=== PATIENT | female | born 1990 | race Caucasian/White ===

== ENCOUNTER 2016-12-28 19:13 | Emergency (ER) | payer MEDICARE ==
[~2016-12-28] VITALS: Ht 157.5 cm; Wt 81.6 kg
[~2016-12-28 19:13] MED LIST: /ADVA50050 IN; /ESCI10TA OR; ADVAIR INH; ALBU0.63 INH; ALBU17IN2 IN; CELEXA PO; DEPA500T OR; DEPAKOTE PO; GABAPOW41 PO; KLON0.5T PO; KLON1TAB PO; LAMO100T PO; LAMO10TA PO; LOTRISONE TOP; MOBIC PO; PAXI10TA2 PO; PROVENTIL; SEROQUEL PO; TRAZ50TA4 PO; ZOLO100T OR
[2016-12-28] MEDS ORDERED: VALT500T PO (19:30)
[2016-12-28] MEDS ORDERED: FOLI800C PO (19:30)
[2016-12-28] MEDS ORDERED: PRENTAB40 PO (19:30)
[2016-12-28 20:31] LABS: CONTROL LINE UCG INT CTR LINE PRESENT
[2016-12-28 20:36] LABS: CALCIUM OXALATE CRYSTALS SMALL
[2016-12-28] MEDS ORDERED: IBUPROFEN 600 MG TAB PO ONE (21:45)
[2016-12-28] MEDS ORDERED: NS 1,000 ML IV ONE (21:45)
[2016-12-28 21:57] LABS: BASO % 0.3 % (0.0-1.0); EOS # 0.3 K/mm3 (0.0-0.50); EOS % 2.7 % (0.0-3.0); LARGE UNSTAINED CELL # 0.1 K/mm3 (0.0-0.4); LARGE UNSTAINED CELL % 0.5 % (0.0-4.0); LYMPH # 0.6 K/mm3 (1.5-6.5); LYMPH % 4.7 % (24.0-44.0); MEAN CORPUSCULAR HEMOGLOBIN 27.9 pg (27.0-33.0); MEAN CORPUSCULAR HGB CONC 33.1 g/dl (32.0-36.5); MEAN CORPUSCULAR VOLUME 84.5 fl (80.0-96.0); MONO # 0.3 K/mm3 (0.0-0.8); MONO % 2.8 % (0.0-5.0); NEUTROPHILS # 9.4 K/mm3 (1.8-7.7); PLATELET COUNT, AUTOMATED 276 k/mm3 (150-450); RED CELL DISTRIBUTION WIDTH 14.8 % (11.5-14.5); WHITE BLOOD COUNT 10.6 K/mm3 (4.0-10.0)
[2016-12-28 22:28] LABS: ANION GAP 7 MEQ/L (8-16); BLOOD UREA NITROGEN 18 MG/DL (7-18); CALCIUM LEVEL 8.6 MG/DL (8.5-10.1); CARBON DIOXIDE LEVEL 22 MEQ/L (21-32); CHLORIDE LEVEL 111 MEQ/L (98-107); CREATININE FOR GFR 0.88 MG/DL (0.55-1.02); GLOMERULAR FILTRATION RATE > 60.0 (>60); GLUCOSE, FASTING 101 MG/DL (70-105); HCG, SERUM QUANTITATIVE 45 MIU/ML; POTASSIUM SERUM 4.1 MEQ/L (3.5-5.1); SODIUM LEVEL 140 MEQ/L (136-145)
--- NOTE | 2016-12-28 22:30 | REPUSA ---
Clinical history: Pain. Findings: Real-time transabdominal and transvaginal ultrasound images of the pelvis were obtained. An anteverted uterus is noted, measuring 13.2 x 7.6 x 10.1 cm. The uterus demonstrates normal echotextu re and echogenicity. The endometrial stripe measures 20 mm in thickness. No evidence of hyper vascula rity is seen in this region. Endometrial fluid is noted. The right ovary measures 4.1 x 2.5 x 2.3 cm. The left ovary measures 4.8 x 3.8 x 2.3 cm. No adnexal masses are seen. Color Doppler flow is seen w ithin both ovaries. There is no evidence of free fluid. Impression: 1. Thickened endometrial stripe with moderate amount of individual fluid. No hypervascularity is appr eciated. The findings likely represent blood products, and there is no discrete evidence of hurricane products of conception. Follow-up is recommended as clinically indicated.
[2016-12-28] MEDS ORDERED: MACR100C3 PO (22:45)
[2016-12-28] MEDS ORDERED: NITROFURANTOIN (MACROBID) 100 MG CAP PO ONE (22:45)
[2016-12-28 22:52] VITALS: BP 120/77
== END 2016-12-28 23:44 | disposition home or self-care (01) ==
LOC: M ED 21:57
DX: N39.0 Urinary tract infection, site not specified (principal); E86.0 Dehydration; N85.00 Endometrial hyperplasia, unspecified; R11.2 Nausea with vomiting, unspecified; R10.30 Lower abdominal pain, unspecified; R10.2 Pelvic and perineal pain; R51 Headache; J45.909 Unspecified asthma, uncomplicated; F31.9 Bipolar disorder, unspecified; F41.9 Anxiety disorder, unspecified; Z79.899 Other long term (current) drug therapy; Z88.2 Allergy status to sulfonamides; Z88.1 Allergy status to other antibiotic agents; Z91.010 Allergy to peanuts

== ENCOUNTER → 2017-05-03 | Outpatient (CLI) | payer MEDICARE ==
[~2017-05-03] MED LIST changes: +FOLI800C PO; +MACR100C43 PO; +PAXI10TA12 PO; -PAXI10TA2 PO; +PRENTAB40 PO; +TRAZ50TA11 PO; -TRAZ50TA4 PO; +VALT500T PO
[2017-05-03 09:41] LABS: BASO % 0.6 % (0.0-1.0); EOS # 0.6 K/mm3 (0.0-0.50); EOS % 7.4 % (0.0-3.0); LYMPH # 1.5 K/mm3 (1.5-6.5); LYMPH % 19.1 % (24.0-44.0); MEAN CORPUSCULAR HEMOGLOBIN 29.5 pg (27.0-33.0); MEAN CORPUSCULAR HGB CONC 34.2 g/dl (32.0-36.5); MEAN CORPUSCULAR VOLUME 86.2 fl (80.0-96.0); MONO # 0.4 K/mm3 (0.0-0.8); MONO % 4.7 % (0.0-5.0); NEUTROPHILS # 5.2 K/mm3 (1.8-7.7); NEUTROPHILS % 66.5 % (36.0-66.0); RED CELL DISTRIBUTION WIDTH 12.6 % (11.5-14.5); WHITE BLOOD COUNT 7.8 K/mm3 (4.0-10.0)
[2017-05-03 10:10] LABS: ALBUMIN 3.9 GM/DL (3.2-5.2); ALBUMIN/GLOBULIN RATIO 1.08 (1.00-1.93); ALKALINE PHOSPHATASE 88 U/L (45-117); ALT/SGPT 32 U/L (12-78); ANION GAP 8 MEQ/L (8-16); AST/SGOT 22 U/L (15-37); BILIRUBIN,TOTAL 0.5 MG/DL (0.2-1.0); BLOOD UREA NITROGEN 8 MG/DL (7-18); CALCIUM LEVEL 8.8 MG/DL (8.5-10.1); CARBON DIOXIDE LEVEL 28 MEQ/L (21-32); CHLORIDE LEVEL 106 MEQ/L (98-107); CHOLESTEROL LEVEL 149 MG/DL (<200); CREATININE FOR GFR 0.74 MG/DL (0.55-1.02); FREE T4 0.92 NG/DL (0.76-1.46); GLOMERULAR FILTRATION RATE > 60.0 (>60); GLUCOSE, FASTING 76 MG/DL (70-105); SODIUM LEVEL 142 MEQ/L (136-145); TOTAL PROTEIN 7.5 GM/DL (6.4-8.2); TRIGLYCERIDES LEVEL 38 MG/DL (<150)
== END ==
LOC: M LAB 09:05
PROVIDERS: ATTEND Nurse Practitioner Adult Health
DX: E78.1 Pure hyperglyceridemia (principal); E78.00 Pure hypercholesterolemia, unspecified; Z79.899 Other long term (current) drug therapy; E55.9 Vitamin D deficiency, unspecified; E04.9 Nontoxic goiter, unspecified; F31.9 Bipolar disorder, unspecified

== ENCOUNTER 2018-09-08 11:31 | Emergency (ER) | payer MEDICARE, OTHER ==
[~2018-09-08] VITALS: Ht 157.5 cm; Wt 86.4 kg
[~2018-09-08 11:31] MED LIST changes: +TRAZ-160 PO; -TRAZ50TA11 PO
[2018-09-08] MEDS ORDERED: ADACEL/BOOSTRIX VACCINE (DIPHTH/PERTUSS/ACELL/TETANUS)0.5ML SYR (90715) IM ONE (11:45)
[2018-09-08] MEDS ORDERED: BACITRACIN OINT 30GM TOP ONE (12:00)
[2018-09-08] MEDS ORDERED: PERCOCET 5MG/325MG TAB PO ONE (12:00)
[2018-09-08] MEDS ORDERED: PERC5TAB12 PO (12:42)
[2018-09-08] MEDS ORDERED: KETOROLAC TROMETHAMINE 10 MG TAB PO ONE (12:45)
[2018-09-08] MEDS ORDERED: KETO10TAB PO (12:45)
[2018-09-08] MEDS ORDERED: MORPHINE 4 MG/ML 1ML VIAL/SYRINGE (J2270) IM ONE (12:45)
[2018-09-08 13:15] VITALS: BP 134/89
== END 2018-09-08 13:26 | disposition home or self-care (01) ==
LOC: M ED 11:31
DX: T25.122A Burn of first degree of left foot, initial encounter (principal); T25.121A Burn of first degree of right foot, initial encounter; T25.222A Burn of second degree of left foot, initial encounter; T31.0 Burns involving less than 10% of body surface; X10.0XXA Contact with hot drinks, initial encounter; Y92.89 Other specified places as the place of occurrence of the external cause; Y99.0 Civilian activity done for income or pay; F33.9 Major depressive disorder, recurrent, unspecified; F41.9 Anxiety disorder, unspecified; B00.9 Herpesviral infection, unspecified; Z88.2 Allergy status to sulfonamides; Z88.8 Allergy status to other drugs, medicaments and biological substances; Z91.018 Allergy to other foods
CPT/HCPCS: 90471; 90715; 96372; 99283; J2270

== ENCOUNTER 2018-09-10 08:48 | Emergency (ER) | payer OTHER ==
[~2018-09-10] VITALS: Ht 157.5 cm; Wt 86.4 kg
[2018-09-10 08:48] VITALS: BP 130/78
[~2018-09-10 08:48] MED LIST changes: +KETO10TAB PO; +PERC5TAB12 PO
== END 2018-09-10 10:13 | disposition home or self-care (01) ==
LOC: M ED 08:48
DX: T25.022D Burn of unspecified degree of left foot, subsequent encounter (principal); X58.XXXD Exposure to other specified factors, subsequent encounter; Y92.89 Other specified places as the place of occurrence of the external cause; J45.909 Unspecified asthma, uncomplicated; F31.9 Bipolar disorder, unspecified; B00.9 Herpesviral infection, unspecified; Z91.018 Allergy to other foods; Z88.2 Allergy status to sulfonamides; Z88.8 Allergy status to other drugs, medicaments and biological substances

== ENCOUNTER → 2019-03-21 | Outpatient (CLI) | payer BC, MEDICARE ==
[~2019-03-21] MED LIST changes: -/ADVA50050 IN; -/ESCI10TA OR; +ADVA1AER2 IN; +LAMO100T80 PO; -LAMO10TA PO; +LEXA1TAB OR; -TRAZ-160 PO; +TRAZ-252 PO
--- NOTE | 2019-03-21 11:19 | REP ---
Clinical: Nontoxic goiter. Technique: Real time mccoy scale and color evaluation using linear high frequency transducer. Comparison: 07/29/2015. Findings: Thyroid gland is essentially normal in size, contour, parenchymal echotexture and vascularity. Right lobe measures 4.8 x 1.3 x 1.6 cm. Isthmus measures 3.2 mm in width. Left lobe measures 4.7 x 1.3 x 1.4 cm. Two adjacent normal appearing lymph nodes with central fatty vascular jen are identified and measures 3.6 x 4.7 x 2.2 mm and 4.6 x 5.6 x 2.2 mm. Impression: Essentially normal thyroid ultrasound. Electronically Signed by Duc Gurrola MD 03/21/2019 11:11 A
== END ==
LOC: M RAD 10:05
PROVIDERS: ATTEND Nurse Practitioner Adult Health
DX: E04.9 Nontoxic goiter, unspecified (principal)

== ENCOUNTER → 2019-04-04 | Outpatient (REF) | payer OTHER, BC ==
[~2019-04-04] MED LIST changes: +ALBU83IN NEB; +CETI10CH PO; +DEPA250T32 PO; -LAMO100T PO; +LAMO100T3 PO
== END ==
LOC: M LAB LCGH 11:47
PROVIDERS: ATTEND Obstetrics & Gynecology
DX: Z12.4 Encounter for screening for malignant neoplasm of cervix (principal)

== ENCOUNTER 2019-08-25 07:03 | Emergency (ER) | payer BC, OTHER ==
[~2019-08-25] VITALS: Ht 157.5 cm; Wt 93.2 kg
[~2019-08-25 07:03] MED LIST changes: -ALBU83IN NEB; -CETI10CH PO; -DEPA250T32 PO
[2019-08-25] MEDS ORDERED: CETI10CH PO (07:18)
[2019-08-25] MEDS ORDERED: DEPA250T32 PO (07:18)
[2019-08-25] MEDS ORDERED: IBUPROFEN 800 MG TAB PO ONE (07:30)
[2019-08-25] MEDS ORDERED: NS 500 ML IV ONE (07:30)
[2019-08-25] MEDS ORDERED: ALBUTEROL SULFATE 2.5 MG/0.5 ML INH NEB SOLN NEB ONE (07:45)
[2019-08-25 07:56] LABS: INFLUENZA A AMPLIFICATION POSITIVE (NEGATIVE); INFLUENZA B AMPLIFICATION NEGATIVE (NEGATIVE)
[2019-08-25 08:14] LABS: BASO % 0.4 % (0.0-1.0); EOS # 0.2 10^3/uL (0.0-0.5); EOS % 3.8 % (0.0-3.0); HEMOGLOBIN 14.8 g/dl (12.0-15.5); LYMPH # 0.6 10^3/uL (1.5-5.0); LYMPH % 12.8 % (24.0-44.0); MEAN CORPUSCULAR HEMOGLOBIN 28.1 pg (27.0-33.0); MEAN CORPUSCULAR HGB CONC 32.9 g/dl (32.0-36.5); MEAN CORPUSCULAR VOLUME 85.6 fl (80.0-96.0); MONO # 0.6 10^3/uL (0.0-0.8); MONO % 11.2 % (0.0-5.0); NEUTROPHILS # 3.6 10^3/uL (1.5-8.5); NEUTROPHILS % 71.4 % (36.0-66.0); PLATELET COUNT, AUTOMATED 144 10^3/uL (150-450); RED BLOOD COUNT 5.26 10^6/uL (4.00-5.40)
[2019-08-25] MEDS ORDERED: ALBU83IN NEB (08:28)
[2019-08-25] MEDS ORDERED: ACETAMINOPHEN 500 MG TAB PO ONE (08:45)
[2019-08-25 09:31] VITALS: BP 118/68
== END 2019-08-25 09:38 | disposition home or self-care (01) ==
LOC: M ED 07:03
DX: J09.X2 Influenza due to identified novel influenza A virus with other respiratory manifestations (principal); J45.909 Unspecified asthma, uncomplicated; F31.9 Bipolar disorder, unspecified; Z88.2 Allergy status to sulfonamides; Z91.018 Allergy to other foods; Z79.899 Other long term (current) drug therapy

== ENCOUNTER → 2019-10-14 | Outpatient (REF) | payer OTHER ==
[~2019-10-14] MED LIST changes: +ALBU83IN NEB; +CETI10CH PO; +DEPA250T32 PO
== END ==
LOC: M LAB REF 13:58
PROVIDERS: ATTEND Physician Assistant Medical
DX: R50.9 Fever, unspecified (principal); J02.9 Acute pharyngitis, unspecified

== ENCOUNTER 2019-12-01 21:32 | Emergency (ER) | payer BC, OTHER ==
[~2019-12-01] VITALS: Ht 157.5 cm; Wt 89.5 kg
[2019-12-01] MEDS ORDERED: DIVA500T94 (21:39)
[2019-12-01] MEDS ORDERED: OTEZ1TAB3 (21:39)
[2019-12-01 23:00] LABS: BASO # 0.1 10^3/uL (0.0-0.2); BASO % 0.8 % (0.0-1.0); EOS # 0.8 10^3/uL (0.0-0.5); EOS % 8.2 % (0.0-3.0); HEMATOCRIT 45.8 % (36.0-47.0); HEMOGLOBIN 15.3 g/dl (12.0-15.5); LYMPH # 2.9 10^3/uL (1.5-5.0); LYMPH % 28.5 % (24.0-44.0); MEAN CORPUSCULAR HEMOGLOBIN 28.7 pg (27.0-33.0); MEAN CORPUSCULAR HGB CONC 33.4 g/dl (32.0-36.5); MEAN CORPUSCULAR VOLUME 85.8 fl (80.0-96.0); MONO # 0.8 10^3/uL (0.0-0.8); MONO % 7.5 % (0.0-5.0); NEUTROPHILS # 5.5 10^3/uL (1.5-8.5); NEUTROPHILS % 54.7 % (36.0-66.0); PLATELET COUNT, AUTOMATED 222 10^3/uL (150-450); RED BLOOD COUNT 5.34 10^6/uL (4.00-5.40)
[2019-12-01] MEDS ORDERED: MORPHINE 4 MG/ML 1ML VIAL/SYRINGE (J2270) IV ONE (23:00)
[2019-12-01] MEDS ORDERED: NS 1,000 ML IV ONE (23:00)
[2019-12-01 23:28] LABS: ALBUMIN 3.6 GM/DL (3.2-5.2); ALT/SGPT 34 U/L (12-78); BILIRUBIN,DIRECT 0.1 MG/DL (0.0-0.2); BILIRUBIN,TOTAL 0.2 MG/DL (0.2-1.0); BLOOD UREA NITROGEN 7 MG/DL (7-18); CARBON DIOXIDE LEVEL 30 MEQ/L (21-32); CHLORIDE LEVEL 104 MEQ/L (98-107); CREATININE FOR GFR 0.82 MG/DL (0.55-1.30); GLOMERULAR FILTRATION RATE > 60.0 (>60); GLUCOSE, FASTING 87 MG/DL (70-100); LIPASE 93 U/L (73-393); POTASSIUM SERUM 3.9 MEQ/L (3.5-5.1); SODIUM LEVEL 139 MEQ/L (136-145); TOTAL PROTEIN 7.3 GM/DL (6.4-8.2); VALPROIC ACID (DEPAKOTE) 50.4 UG/ML (50.0-100.0)
[2019-12-01 23:34] LABS: HCG, SERUM QUALITATIVE NEGATIVE (NEGATIVE)
[2019-12-01] MEDS ORDERED: METAL LOCK LOOP XX ONE (23:37)
[2019-12-01] MEDS ORDERED: ISOVUE-370 76% 100ML VIAL (Q9967) As Ordered ONE (23:38)
--- NOTE | 2019-12-02 00:08 | REPVR ---
PROCEDURE INFORMATION: Exam: CT Abdomen And Pelvis With Contrast Exam date and time: 12/01/2019 11:50 PM Age: 29 years old Clinical indication: Abdominal pain; Localized; Right lower quadrant (rlq); Additional info: Rlq pain TECHNIQUE: Imaging protocol: Computed tomography of the abdomen and pelvis with intravenous contrast. Radiation optimization: All CT scans at this facility use at least one of these dose optimization techniques: automated exposure control; mA and/or kV adjustment per patient size (includes targeted exams where dose is matched to clinical indication); or iterative reconstruction. Contrast material: ISOVUE 370; Contrast volume: 100 ml; Contrast route: IV; COMPARISON: CT ABD PELVIS WITH CONTRAST 05/25/2015 12:39 AM FINDINGS: Liver: There is hepatomegaly and hepatic steatosis. Gallbladder and bile ducts: Normal. No calcified stones. No ductal dilation. Pancreas: Normal. No ductal dilation. Spleen: Normal. No splenomegaly. Adrenals: Normal. No mass. Kidneys and ureters: Normal. No hydronephrosis. Stomach and bowel: Unremarkable. No obstruction. No mucosal thickening. Appendix: No evidence of appendicitis. Intraperitoneal space: Unremarkable. No free air. No significant fluid collection. Vasculature: Unremarkable. No abdominal aortic aneurysm. Lymph nodes: Unremarkable. No enlarged lymph nodes. Bladder: Unremarkable as visualized. Reproductive: Unremarkable as visualized. Bones/joints: Unremarkable. No acute fracture. Soft tissues: Small fat containing umbilical hernia. IMPRESSION: 1. Hepatic steatosis and hepatomegaly. 2. Small fat containing umbilical hernia. 3. No acute findings. Electronically signed by: Isac Tavarez On 12/02/2019 00:07:16 AM
[2019-12-02 00:23] LABS: APPEARANCE, URINE CLEAR (CLEAR); BACTERIA, URINE AUTO NEGATIVE (NEGATIVE); BILIRUBIN, URINE AUTO NEGATIVE (NEGATIVE); BLOOD, URINE BLOOD NEGATIVE (NEGATIVE); COLOR, URINE STRAW (YELLOW); GLUCOSE, URINE (UA) AUTO NEGATIVE (NEGATIVE); KETONE, URINE AUTO NEGATIVE (NEGATIVE); LEUKOCYTE ESTERASE, URINE AUTO NEGATIVE (NEGATIVE); NITRITE, URINE AUTO NEGATIVE (NEGATIVE); PROTEIN, URINE AUTO NEGATIVE (NEGATIVE); RBC, URINE AUTO 0 /HPF (0-3); SPECIFIC GRAVITY URINE AUTO 1.016 (1.002-1.035); SQUAMOUS EPITHELIAL CELL UR AU 1 /HPF (0-6); UROBILINOGEN, URINE AUTO 0.2 mg/dL (0.0-2.0); WBC, URINE AUTO 0 /HPF (0-3)
[2019-12-02 02:29] LABS: CHLAMYDIA DNA AMPLIFICATION NEGATIVE (NEGATIVE); GC DNA AMPLIFICATION NEGATIVE (NEGATIVE)
[2019-12-02 02:46] VITALS: BP 131/84
== END 2019-12-02 02:59 | disposition home or self-care (01) ==
LOC: M ED 21:32
DX: R10.31 Right lower quadrant pain (principal); R11.0 Nausea; J45.909 Unspecified asthma, uncomplicated; F31.9 Bipolar disorder, unspecified; Z88.2 Allergy status to sulfonamides; Z91.018 Allergy to other foods; Z79.899 Other long term (current) drug therapy
CPT/HCPCS: 74177; 80048; 80076; 80164; 81001; 83690; 84703; 85025; 87210; 87661; 96361; 96374; 99284; J2270; Q9967

== ENCOUNTER 2020-07-08 05:48 | Emergency (ER) | payer BC, OTHER ==
[~2020-07-08] VITALS: Ht 157.5 cm; Wt 92.5 kg
[~2020-07-08 05:48] MED LIST changes: +DIVA500T94; +OTEZ1TAB3
[2020-07-08] MEDS ORDERED: AZIT-12 PO (06:03)
[2020-07-08] MEDS ORDERED: KETOROLAC 30 MG/ML 1ML VIAL IM ONE (07:00)
[2020-07-08] MEDS ORDERED: KETOROLAC 30 MG/ML 1ML VIAL IV ONE (07:00)
[2020-07-08] MEDS ORDERED: ACETAMINOPHEN 500 MG TAB PO ONE (07:00)
[2020-07-08] MEDS ORDERED: CYCL5TAB PO (07:03)
[2020-07-08 07:27] VITALS: BP 139/91
== END 2020-07-08 07:29 | disposition home or self-care (01) ==
LOC: M ED 05:48
DX: M54.5 Low back pain (principal); U07.1 COVID-19; F41.9 Anxiety disorder, unspecified; F32.9 Major depressive disorder, single episode, unspecified; B00.9 Herpesviral infection, unspecified; Z88.2 Allergy status to sulfonamides; Z91.018 Allergy to other foods; Z79.899 Other long term (current) drug therapy; Z79.2 Long term (current) use of antibiotics
CPT/HCPCS: 96372; 99283; J1885

== ENCOUNTER → 2021-08-13 | Outpatient (REF) | payer BC, OTHER ==
[~2021-08-13] MED LIST changes: +AZIT-12 PO; +CYCL5TAB PO
== END ==
LOC: M LAB REF 16:18
PROVIDERS: ATTEND Physician Assistant
DX: J02.9 Acute pharyngitis, unspecified (principal)

== ENCOUNTER → 2022-06-23 | Outpatient (CLI) | payer BC, OTHER ==
[~2022-06-23] MED LIST changes: +ALBU2.5V10 NEB; +ALBU8.5H INH; -ALBU83IN NEB; +BUPR150T12 PO; +FLUO10CA18 PO; +LATU20TA PO; +OLAN1TAB20 PO; +SPIR-10 PO
[2022-06-23 17:31] LABS: BASO # 0.1 10^3/uL (0.0-0.2); BASO % 0.8 % (0.0-1.0); EOS % 11.1 % (0.0-3.0); HEMATOCRIT 45.2 % (36.0-47.0); HEMOGLOBIN 14.5 g/dl (12.0-15.5); LYMPH # 1.8 10^3/uL (1.5-5.0); LYMPH % 19.8 % (24.0-44.0); MEAN CORPUSCULAR HEMOGLOBIN 28.7 pg (27.0-33.0); MEAN CORPUSCULAR HGB CONC 32.1 g/dl (32.0-36.5); MEAN CORPUSCULAR VOLUME 89.5 fl (80.0-96.0); MONO # 0.6 10^3/uL (0.0-0.8); MONO % 6.4 % (2.0-8.0); NEUTROPHILS # 5.4 10^3/uL (1.5-8.5); NEUTROPHILS % 61.4 % (36.0-66.0); PLATELET COUNT, AUTOMATED 292 10^3/uL (150-450); RED BLOOD COUNT 5.05 10^6/uL (4.00-5.40); WHITE BLOOD COUNT 8.8 10^3/uL (4.0-10.0)
[2022-06-23 18:02] LABS: HCG, SERUM QUALITATIVE NEGATIVE (NEGATIVE)
[2022-06-23 18:13] LABS: BLOOD UREA NITROGEN 9 MG/DL (7-18); CARBON DIOXIDE LEVEL 28 MEQ/L (21-32); CHLORIDE LEVEL 106 MEQ/L (98-107); CREATININE FOR GFR 0.87 MG/DL (0.55-1.30); GLOMERULAR FILTRATION RATE > 60.0 (>60); GLUCOSE, FASTING 88 MG/DL (70-100); POTASSIUM SERUM 4.2 MEQ/L (3.5-5.1); SODIUM LEVEL 139 MEQ/L (136-145)
== END ==
LOC: M WUC 11:15
PROVIDERS: ATTEND Podiatrist
DX: M79.672 Pain in left foot (principal)

== ENCOUNTER → 2022-06-29 | Outpatient (CLI) | payer BC, OTHER | LOC: M LABSMTC 09:45 | PROVIDERS: ATTEND Anesthesiology | DX: Z01.818 Encounter for other preprocedural examination (principal); Z11.52 Encounter for screening for COVID-19 ==

== ENCOUNTER 2022-07-02 06:21 | Day surgery (SDC) | payer BC, OTHER ==
[~2022-07-02] VITALS: Ht 157.5 cm; Wt 83.2 kg
[~2022-07-02 06:21] MED LIST changes: +ceFAZolin SOD 2 GM in IV 1 EA IV ONE
[2022-07-02] MEDS ORDERED: LR 1,000 ML IV SCH (06:45)
[2022-07-02 07:02] LABS: HCG, SERUM QUALITATIVE NEGATIVE (NEGATIVE)
[2022-07-02] MEDS ORDERED: dexameTHASONE 4 MG/ML 1ML VIAL (J1100 PER 1MG) As Ordered ONE ×2 (07:11→07:19)
[2022-07-02] MEDS ORDERED: LIDOCAINE 2% MDV 20ML VIAL As Ordered ONE (07:11)
[2022-07-02] MEDS ORDERED: GENTAMICIN SULF 80MG/2ML VIAL As Ordered ONE (07:11)
[2022-07-02] MEDS ORDERED: BUPIVACAINE HCL 0.5% 30ML VIAL As Ordered ONE (07:11)
[2022-07-02] MEDS ORDERED: fentaNYL 100 MCG/2 ML INJECTION As Ordered ONE (07:18)
[2022-07-02] MEDS ORDERED: propofoL 500 MG/50 ML VIAL As Ordered ONE (07:18)
[2022-07-02] MEDS ORDERED: MIDAZOLAM INJ 2MG/2ML VIAL (J2250 PER 1MG) As Ordered ONE (07:18)
[2022-07-02] MEDS ORDERED: ONDANSETRON 4MG 2ML VIAL As Ordered ONE (07:19)
[2022-07-02] MEDS ORDERED: LIDOCAINE 2% 100MG/5ML SDV (FOR ANES.) As Ordered ONE (07:19)
[2022-07-02 09:18] VITALS: BP 122/82
== END 2022-07-02 09:19 | disposition home or self-care (01) ==
LOC: M SDC 06:21
PROVIDERS: ATTEND Podiatrist
DX: M20.12 Hallux valgus (acquired), left foot (principal); Z79.899 Other long term (current) drug therapy; Z88.2 Allergy status to sulfonamides; Z91.018 Allergy to other foods
CPT/HCPCS: 28296; 36415; 73630; 76000; 84703; 88300; C1713; J0690; J1100; J1580; J2250; J2405; J3010

== ENCOUNTER → 2022-07-12 | Outpatient (CLI) | payer BC, OTHER ==
[~2022-07-12] MED LIST changes: -ceFAZolin SOD 2 GM in IV 1 EA IV ONE
[2022-07-12 12:49] LABS: BASO # 0.1 10^3/uL (0.0-0.2); BASO % 0.7 % (0.0-1.0); EOS # 0.6 10^3/uL (0.0-0.5); EOS % 5.1 % (0.0-3.0); HEMATOCRIT 45.1 % (36.0-47.0); HEMOGLOBIN 14.9 g/dl (12.0-15.5); LYMPH # 1.7 10^3/uL (1.5-5.0); LYMPH % 15.1 % (24.0-44.0); MEAN CORPUSCULAR HEMOGLOBIN 28.7 pg (27.0-33.0); MEAN CORPUSCULAR VOLUME 86.9 fl (80.0-96.0); MONO # 0.8 10^3/uL (0.0-0.8); MONO % 7.4 % (2.0-8.0); NEUTROPHILS # 7.8 10^3/uL (1.5-8.5); NEUTROPHILS % 71.2 % (36.0-66.0); PLATELET COUNT, AUTOMATED 274 10^3/uL (150-450); RED BLOOD COUNT 5.19 10^6/uL (4.00-5.40)
[2022-07-12 13:26] LABS: ALBUMIN 4.2 G/DL (3.2-5.2); ALT/SGPT 15 U/L (7.0-40); BILIRUBIN,TOTAL 0.5 MG/DL (0.3-1.2); BLOOD UREA NITROGEN 12 MG/DL (9-23); CALCIUM LEVEL 8.8 MG/DL (8.5-10.1); CARBON DIOXIDE LEVEL 27 MMOL/L (20-31); CHLORIDE LEVEL 103 MMOL/L (98-107); CREATININE FOR GFR 0.83 MG/DL (0.55-1.30); GLOMERULAR FILTRATION RATE > 60.0 (>60); GLUCOSE, FASTING 85 MG/DL (60-100); POTASSIUM SERUM 4.3 MMOL/L (3.5-5.1); SODIUM LEVEL 139 MMOL/L (136-145); TOTAL PROTEIN 7.1 G/DL (5.7-8.2)
== END ==
LOC: M WUC 09:49
PROVIDERS: ATTEND Nurse Practitioner Family
DX: L40.0 Psoriasis vulgaris (principal)

== ENCOUNTER → 2022-07-12 | Outpatient (CLI) | payer BC, OTHER ==
[2022-07-12 12:46] LABS: BASO # 0.1 10^3/uL (0.0-0.2); BASO % 0.6 % (0.0-1.0); EOS # 0.5 10^3/uL (0.0-0.5); EOS % 4.9 % (0.0-3.0); HEMATOCRIT 45.6 % (36.0-47.0); LYMPH # 1.6 10^3/uL (1.5-5.0); LYMPH % 14.9 % (24.0-44.0); MEAN CORPUSCULAR HEMOGLOBIN 28.9 pg (27.0-33.0); MEAN CORPUSCULAR HGB CONC 32.9 g/dl (32.0-36.5); MEAN CORPUSCULAR VOLUME 87.9 fl (80.0-96.0); MONO # 0.8 10^3/uL (0.0-0.8); MONO % 7.1 % (2.0-8.0); NEUTROPHILS # 7.8 10^3/uL (1.5-8.5); PLATELET COUNT, AUTOMATED 259 10^3/uL (150-450); RED BLOOD COUNT 5.19 10^6/uL (4.00-5.40); WHITE BLOOD COUNT 10.8 10^3/uL (4.0-10.0)
[2022-07-12 13:20] LABS: HEMOGLOBIN A1c 4.8 % (4.0-6.0)
[2022-07-12 13:58] LABS: ALBUMIN 4.2 G/DL (3.2-5.2); ALT/SGPT 15 U/L (7.0-40); BILIRUBIN,TOTAL 0.5 MG/DL (0.3-1.2); BLOOD UREA NITROGEN 13 MG/DL (9-23); CALCIUM LEVEL 8.8 MG/DL (8.5-10.1); CARBON DIOXIDE LEVEL 26 MMOL/L (20-31); CHLORIDE LEVEL 103 MMOL/L (98-107); CHOLESTEROL LEVEL 115 MG/DL (<200); CREATININE FOR GFR 0.83 MG/DL (0.55-1.30); GLOMERULAR FILTRATION RATE > 60.0 (>60); GLUCOSE, FASTING 85 MG/DL (60-100); HDL CHOLESTEROL 44.1 MG/DL (>40); LDL CHOLESTEROL 60.5 MG/DL (<100); MAGNESIUM LEVEL 1.7 MG/DL (1.8-2.4); NON-HDL-C 71 MG/DL; POTASSIUM SERUM 4.3 MMOL/L (3.5-5.1); SODIUM LEVEL 139 MMOL/L (136-145); THYROID STIMULATING HORMONE 2.174 uIU/ML (0.55-4.78); TOTAL 25(OH) VITAMIN D 37.2 NG/ML (20.0-100.0); TOTAL PROTEIN 7.1 G/DL (5.7-8.2); TRIGLYCERIDES LEVEL 52 MG/DL (<150)
== END ==
LOC: M WUC 09:45
PROVIDERS: ATTEND Nurse Practitioner Family
DX: F41.1 Generalized anxiety disorder (principal); D64.9 Anemia, unspecified; R53.83 Other fatigue; Z00.01 Encounter for general adult medical examination with abnormal findings; F31.9 Bipolar disorder, unspecified; E78.00 Pure hypercholesterolemia, unspecified; E55.9 Vitamin D deficiency, unspecified; Z79.899 Other long term (current) drug therapy

== ENCOUNTER → 2023-01-12 | Outpatient (CLI) | payer BC, OTHER ==
[~2023-01-12] MED LIST changes: +APRE30TA3; -OTEZ1TAB3; -PAXI10TA12 PO; +PAXI10TA13 PO
[2023-01-12 13:40] LABS: BASO # 0.1 10^3/uL (0.0-0.2); BASO % 0.7 % (0.0-1.0); EOS # 0.8 10^3/uL (0.0-0.5); EOS % 11.3 % (0.0-3.0); HEMATOCRIT 43.9 % (36.0-47.0); HEMOGLOBIN 14.3 g/dl (12.0-15.5); LYMPH # 1.6 10^3/uL (1.5-5.0); LYMPH % 23.6 % (24.0-44.0); MEAN CORPUSCULAR HEMOGLOBIN 28.5 pg (27.0-33.0); MEAN CORPUSCULAR HGB CONC 32.6 g/dl (32.0-36.5); MEAN CORPUSCULAR VOLUME 87.5 fl (80.0-96.0); MONO # 0.6 10^3/uL (0.0-0.8); MONO % 8.1 % (2.0-8.0); NEUTROPHILS # 3.9 10^3/uL (1.5-8.5); PLATELET COUNT, AUTOMATED 257 10^3/uL (150-450); RED BLOOD COUNT 5.02 10^6/uL (4.00-5.40); WHITE BLOOD COUNT 6.9 10^3/uL (4.0-10.0)
[2023-01-12 13:51] LABS: HEMOGLOBIN A1c 4.9 % (4.0-6.0)
[2023-01-12 13:55] LABS: ALBUMIN 3.8 G/DL (3.2-5.2); ALKALINE PHOSPHATASE 60 U/L (46-116); ALT/SGPT 20 U/L (7.0-40); AST/SGOT 17 U/L (<34); BILIRUBIN,TOTAL 0.5 MG/DL (0.3-1.2); BLOOD UREA NITROGEN 7 MG/DL (9-23); CALCIUM LEVEL 8.9 MG/DL (8.5-10.1); CARBON DIOXIDE LEVEL 27 MMOL/L (20-31); CHLORIDE LEVEL 109 MMOL/L (98-107); CHOLESTEROL LEVEL 127 MG/DL (<200); CHOLESTEROL RISK RATIO 2.52 (<5); CREATININE FOR GFR 0.81 MG/DL (0.55-1.30); GLOMERULAR FILTRATION RATE > 60.0 (>60); GLUCOSE, FASTING 78 MG/DL (60-100); HDL CHOLESTEROL 50.3 MG/DL (>40); LDL CHOLESTEROL 64.5 MG/DL (<100); MAGNESIUM LEVEL 1.8 MG/DL (1.8-2.4); NON-HDL-C 76.7 MG/DL; POTASSIUM SERUM 3.9 MMOL/L (3.5-5.1); SODIUM LEVEL 136 MMOL/L (136-145); TOTAL PROTEIN 6.6 G/DL (5.7-8.2); TRIGLYCERIDES LEVEL 61 MG/DL (<150)
[2023-01-12 13:56] LABS: TOTAL 25(OH) VITAMIN D 38.4 NG/ML (20.0-100.0)
== END ==
LOC: M WUC 09:02
PROVIDERS: ATTEND Nurse Practitioner Family
DX: Z00.01 Encounter for general adult medical examination with abnormal findings (principal); Z13.1 Encounter for screening for diabetes mellitus; E78.00 Pure hypercholesterolemia, unspecified; E83.42 Hypomagnesemia; Z13.29 Encounter for screening for other suspected endocrine disorder; E55.9 Vitamin D deficiency, unspecified

== ENCOUNTER → 2023-02-03 | Outpatient (CLI) | payer BC, OTHER, MEDICARE | LOC: M RAD 07:03 | PROVIDERS: ATTEND Registered Nurse Community Health | DX: R07.9 Chest pain, unspecified (principal); R10.30 Lower abdominal pain, unspecified ==

== ENCOUNTER 2023-02-20 17:23 | Emergency (ER) | payer BC, OTHER, MEDICARE ==
[~2023-02-20] VITALS: Ht 157.5 cm; Wt 86.4 kg
[2023-02-20 18:16] LABS: BASO # 0.1 10^3/uL (0.0-0.2); BASO % 0.8 % (0.0-1.0); EOS # 2.8 10^3/uL (0.0-0.5); HEMATOCRIT 45.2 % (36.0-47.0); HEMOGLOBIN 15.1 g/dl (12.0-15.5); LYMPH # 2.2 10^3/uL (1.5-5.0); LYMPH % 18.3 % (24.0-44.0); MEAN CORPUSCULAR HEMOGLOBIN 28.8 pg (27.0-33.0); MEAN CORPUSCULAR HGB CONC 33.4 g/dl (32.0-36.5); MEAN CORPUSCULAR VOLUME 86.3 fl (80.0-96.0); MONO # 0.6 10^3/uL (0.0-0.8); MONO % 5.2 % (2.0-8.0); NEUTROPHILS # 6.4 10^3/uL (1.5-8.5); NEUTROPHILS % 52.3 % (36.0-66.0); PLATELET COUNT, AUTOMATED 272 10^3/uL (150-450); RED BLOOD COUNT 5.24 10^6/uL (4.00-5.40); WHITE BLOOD COUNT 12.2 10^3/uL (4.0-10.0)
[2023-02-20 18:27] LABS: EOS % 23.1 % (0.0-3.0)
[2023-02-20 18:33] LABS: LIPASE 32 U/L (12-53)
[2023-02-20 18:35] LABS: ALBUMIN 3.9 G/DL (3.2-5.2); ALKALINE PHOSPHATASE 85 U/L (46-116); ALT/SGPT 20 U/L (7.0-40); AST/SGOT 12 U/L (<34); BILIRUBIN,DIRECT 0.1 MG/DL (<0.4); BILIRUBIN,TOTAL 0.3 MG/DL (0.3-1.2); BLOOD UREA NITROGEN 8 MG/DL (9-23); CALCIUM LEVEL 9.3 MG/DL (8.5-10.1); CARBON DIOXIDE LEVEL 28 MMOL/L (20-31); CHLORIDE LEVEL 106 MMOL/L (98-107); CREATININE FOR GFR 0.79 MG/DL (0.55-1.30); GLOMERULAR FILTRATION RATE > 60.0 (>60); GLUCOSE, FASTING 91 MG/DL (60-100); POTASSIUM SERUM 4.2 MMOL/L (3.5-5.1); SODIUM LEVEL 140 MMOL/L (136-145); TOTAL PROTEIN 6.9 G/DL (5.7-8.2)
[2023-02-20 18:37] LABS: HCG, SERUM QUALITATIVE NEGATIVE (NEGATIVE)
[2023-02-20] MEDS ORDERED: KETOROLAC 30 MG/ML 1ML VIAL IV ONE (19:15)
[2023-02-20] MEDS ORDERED: ONDANSETRON 4MG 2ML VIAL IV ONE (19:15)
[2023-02-20] MEDS ORDERED: NS 1,000 ML IV ONE (19:15)
[2023-02-20] MEDS ORDERED: ISOVUE-370 76% 100ML VIAL As Ordered ONE (19:18)
[2023-02-20] MEDS ORDERED: ONDA4TAB6 PO (21:02)
[2023-02-20] MEDS ORDERED: KETO10TAB PO (21:02)
[2023-02-20 21:27] VITALS: BP 113/62; TEMP 97.3; O2SAT 98
== END 2023-02-20 21:30 | disposition home or self-care (01) ==
LOC: M ED 17:23
DX: I88.0 Nonspecific mesenteric lymphadenitis (principal); B00.9 Herpesviral infection, unspecified; F31.9 Bipolar disorder, unspecified; F41.9 Anxiety disorder, unspecified; F32.A Depression, unspecified; R51.9 Headache, unspecified; J45.909 Unspecified asthma, uncomplicated; G47.33 Obstructive sleep apnea (adult) (pediatric); Z88.2 Allergy status to sulfonamides; Z88.8 Allergy status to other drugs, medicaments and biological substances; Z91.010 Allergy to peanuts; Z79.899 Other long term (current) drug therapy
CPT/HCPCS: 74177; 80048; 80076; 81001; 83690; 84703; 85025; 96374; 96375; 99284; J1885; J2405; Q9967

== ENCOUNTER → 2023-02-22 | Outpatient (REF) | payer BC, OTHER, MEDICARE ==
[~2023-02-22] MED LIST changes: +ONDA4TAB6 PO
== END ==
LOC: M LAB REF 15:46
PROVIDERS: ATTEND Physician Assistant
DX: R19.7 Diarrhea, unspecified (principal)

== ENCOUNTER → 2023-03-29 | Outpatient (CLI) | payer BC, OTHER, MEDICARE ==
[2023-03-29 12:45] LABS: ALBUMIN 3.9 G/DL (3.2-5.2); BILIRUBIN,DIRECT 0.2 MG/DL (<0.4); BILIRUBIN,TOTAL 0.6 MG/DL (0.3-1.2); TOTAL PROTEIN 6.7 G/DL (5.7-8.2)
== END ==
LOC: M WUC 10:00
PROVIDERS: ATTEND Physician Assistant
DX: R10.32 Left lower quadrant pain (principal); R10.12 Left upper quadrant pain; R16.0 Hepatomegaly, not elsewhere classified

== ENCOUNTER → 2023-04-18 | Outpatient (REF) | payer OTHER, BC | LOC: M LAB REF 19:16 | PROVIDERS: ATTEND Nurse Practitioner Family | DX: R30.0 Dysuria (principal); N39.0 Urinary tract infection, site not specified ==

== ENCOUNTER → 2023-10-19 | Outpatient (CLI) | payer BC, OTHER, MEDICARE ==
[~2023-10-19] MED LIST changes: -KLON0.5T PO; +KLON0.5T8 PO
[2023-10-19 12:56] LABS: HEMATOCRIT 44.1 % (36.0-47.0); HEMOGLOBIN 14.9 g/dl (12.0-15.5); MEAN CORPUSCULAR HEMOGLOBIN 29.5 pg (27.0-33.0); MEAN CORPUSCULAR HGB CONC 33.8 g/dl (32.0-36.5); MEAN CORPUSCULAR VOLUME 87.3 fl (80.0-96.0); PLATELET COUNT, AUTOMATED 259 10^3/uL (150-450); RED BLOOD COUNT 5.05 10^6/uL (4.00-5.40); WHITE BLOOD COUNT 7.6 10^3/uL (4.0-10.0)
[2023-10-19 13:11] LABS: HEMOGLOBIN A1c 4.9 % (4.0-6.0)
[2023-10-19 13:31] LABS: THYROID STIMULATING HORMONE 2.034 uIU/ML (0.55-4.78)
[2023-10-19 13:33] LABS: ALBUMIN 3.9 G/DL (3.2-5.2); ALKALINE PHOSPHATASE 58 U/L (46-116); ALT/SGPT 27 U/L (7.0-40); AST/SGOT 18 U/L (<34); BILIRUBIN,TOTAL 0.5 MG/DL (0.3-1.2); BLOOD UREA NITROGEN 7 MG/DL (9-23); CALCIUM LEVEL 9.1 MG/DL (8.5-10.1); CARBON DIOXIDE LEVEL 27 MMOL/L (20-31); CHLORIDE LEVEL 106 MMOL/L (98-107); CHOLESTEROL LEVEL 146 MG/DL (<200); CREATININE FOR GFR 0.74 MG/DL (0.55-1.30); GLOMERULAR FILTRATION RATE > 60.0 (>60); GLUCOSE, FASTING 86 MG/DL (60-100); HDL CHOLESTEROL 50.2 MG/DL (>40); LDL CHOLESTEROL 77.8 MG/DL (<100); NON-HDL-C 95.8 MG/DL; POTASSIUM SERUM 4.3 MMOL/L (3.5-5.1); SODIUM LEVEL 140 MMOL/L (136-145); TOTAL PROTEIN 6.8 G/DL (5.7-8.2); TRIGLYCERIDES LEVEL 90 MG/DL (<150)
== END ==
LOC: M WUC 09:48
PROVIDERS: ATTEND Registered Nurse
DX: Z83.3 Family history of diabetes mellitus (principal); E78.00 Pure hypercholesterolemia, unspecified; E55.9 Vitamin D deficiency, unspecified; G47.33 Obstructive sleep apnea (adult) (pediatric); Z79.899 Other long term (current) drug therapy

== ENCOUNTER → 2024-04-19 | Outpatient (CLI) | payer BC, OTHER, MEDICARE ==
[~2024-04-19] MED LIST changes: +FLUO-290 PO; -FLUO10CA18 PO; -KLON1TAB PO; +KLON1TAB13 PO; +ONDA-282 PO; -ONDA4TAB6 PO
[2024-04-19 12:18] LABS: BASO # 0.1 10^3/uL (0.0-0.2); BASO % 0.8 % (0.0-1.0); EOS # 0.7 10^3/uL (0.0-0.5); EOS % 10.7 % (0.0-3.0); HEMATOCRIT 44.5 % (36.0-47.0); LYMPH # 1.3 10^3/uL (1.5-5.0); LYMPH % 20.5 % (24.0-44.0); MEAN CORPUSCULAR HEMOGLOBIN 29.5 pg (27.0-33.0); MEAN CORPUSCULAR HGB CONC 33.7 g/dl (32.0-36.5); MEAN CORPUSCULAR VOLUME 87.6 fl (80.0-96.0); MONO # 0.5 10^3/uL (0.0-0.8); NEUTROPHILS # 3.8 10^3/uL (1.5-8.5); NEUTROPHILS % 59.7 % (36.0-66.0); PLATELET COUNT, AUTOMATED 224 10^3/uL (150-450); RED BLOOD COUNT 5.08 10^6/uL (4.00-5.40); WHITE BLOOD COUNT 6.3 10^3/uL (4.0-10.0)
[2024-04-19 12:24] LABS: ERYTHROCYTE SEDIMENTATION RATE 7 mm/hr (0-20)
[2024-04-19 12:41] LABS: URIC ACID 3.9 MG/DL (3.1-7.8)
[2024-04-19 12:43] LABS: C REACTIVE PROTEIN QUANTITATIV < 0.40 MG/DL (<1.0)
[2024-04-19 12:44] LABS: ALKALINE PHOSPHATASE 56 U/L (46-116); ALT/SGPT 28 U/L (7.0-40); AST/SGOT 17 U/L (<34); BILIRUBIN,TOTAL 0.4 MG/DL (0.3-1.2); BLOOD UREA NITROGEN 10 MG/DL (9-23); CALCIUM LEVEL 8.8 MG/DL (8.5-10.1); CARBON DIOXIDE LEVEL 28 MMOL/L (20-31); CHLORIDE LEVEL 107 MMOL/L (98-107); CHOLESTEROL LEVEL 123 MG/DL (<200); CHOLESTEROL RISK RATIO 2.77 (<5); CREATININE FOR GFR 0.79 MG/DL (0.55-1.30); GLOMERULAR FILTRATION RATE > 60.0 (>60); GLUCOSE, FASTING 75 MG/DL (60-100); HDL CHOLESTEROL 44.3 MG/DL (>40); LDL CHOLESTEROL 68.7 MG/DL (<100); NON-HDL-C 78.7 MG/DL; SODIUM LEVEL 138 MMOL/L (136-145); TOTAL PROTEIN 6.9 G/DL (5.7-8.2); TRIGLYCERIDES LEVEL 50 MG/DL (<150)
[2024-04-19 12:45] LABS: RHEUMATOID FACTOR QUANT < 3.5 IU/ML (<14)
[2024-04-19 12:47] LABS: TOTAL 25(OH) VITAMIN D 35.8 NG/ML (20.0-100.0)
[2024-04-20 11:37] LABS: SSA SJOGRENS A <1.0 NEG AI (<1.0 NEG); SSB SJOGRENS B <1.0 NEG AI (<1.0 NEG)
[2024-04-20 15:51] LABS: ANA SCREEN, IFA NEGATIVE (NEGATIVE)
[2024-04-20 23:32] LABS: CYCLIC CITRULLINATED PEPTIDE 27 UNITS (<20)
[2024-04-22 15:12] LABS: LYME TOTAL ANTIBODY CIA <= 0.90 Index (<=0.90)
[2024-04-27 11:18] LABS: HLA-B27 Negative (Negative)
== END ==
LOC: M WUC 09:52
PROVIDERS: ATTEND Registered Nurse
DX: M13.0 Polyarthritis, unspecified (principal); E55.9 Vitamin D deficiency, unspecified; E78.00 Pure hypercholesterolemia, unspecified

== ENCOUNTER → 2024-10-08 | Outpatient (CLI) | payer BC, MEDICARE ==
[~2024-10-08] MED LIST changes: -CYCL5TAB PO; +CYCL5TAB4 PO
== END ==
LOC: M RAD 13:47
PROVIDERS: ATTEND Nurse Practitioner Family
DX: E06.3 Autoimmune thyroiditis (principal)

== ENCOUNTER → 2025-05-06 | Outpatient (CLI) | payer OTHER ==
[~2025-05-06] MED LIST changes: -DEPA250T32 PO; +DIVA-41; +DIVA-65 PO; -DIVA500T94
[2025-05-06 12:59] LABS: BASO # 0.1 10^3/uL (0.0-0.2); BASO % 0.9 % (0.0-1.0); EOS # 1.0 10^3/uL (0.0-0.5); EOS % 10.4 % (0.0-3.0); LYMPH # 1.9 10^3/uL (1.5-5.0); LYMPH % 20.1 % (24.0-44.0); MONO # 0.7 10^3/uL (0.0-0.8); MONO % 7.9 % (2.0-8.0); NEUTROPHILS # 5.6 10^3/uL (1.5-8.5); NEUTROPHILS % 60.5 % (36.0-66.0); PLATELET COUNT, AUTOMATED 285 10^3/uL (150-450)
[2025-05-06 13:05] LABS: ERYTHROCYTE SEDIMENTATION RATE 16 mm/hr (0-20)
[2025-05-06 13:29] LABS: C REACTIVE PROTEIN QUANTITATIV < 0.50 MG/DL (<1.0)
[2025-05-06 13:32] LABS: ALT/SGPT 27 U/L (7.0-40); AST/SGOT 20 U/L (<34); CALCIUM LEVEL 8.7 MG/DL (8.5-10.1); CARBON DIOXIDE LEVEL 28 MMOL/L (20-31); CHLORIDE LEVEL 105 MMOL/L (98-107); CREATININE FOR GFR 0.87 MG/DL (0.55-1.30); GLOMERULAR FILTRATION RATE 89.1 (>60); POTASSIUM SERUM 4.2 MMOL/L (3.5-5.1); SODIUM LEVEL 139 MMOL/L (136-145)
== END ==
LOC: M WUC 09:13
PROVIDERS: ATTEND Internal Medicine Rheumatology
DX: L65.9 Nonscarring hair loss, unspecified (principal); R53.83 Other fatigue; R52 Pain, unspecified; R41.3 Other amnesia

== ENCOUNTER → 2025-05-09 | Outpatient (CLI) | payer OTHER | LOC: M WUC 09:24 | PROVIDERS: ATTEND Internal Medicine Rheumatology | DX: R53.83 Other fatigue (principal); R52 Pain, unspecified; R21 Rash and other nonspecific skin eruption; L65.9 Nonscarring hair loss, unspecified; R41.3 Other amnesia ==

== ENCOUNTER → 2025-06-03 | Outpatient (CLI) | payer OTHER | LOC: M PLAIMG 10:27 | PROVIDERS: ATTEND Registered Nurse | DX: R42 Dizziness and giddiness (principal) ==

== ENCOUNTER → 2025-06-05 | Outpatient (CLI) | payer OTHER | LOC: M EKG 08:58 | PROVIDERS: ATTEND Registered Nurse | DX: R42 Dizziness and giddiness (principal) ==